=== PATIENT | female | born 1995 | race Caucasian/White ===

== ENCOUNTER 2023-09-01 09:15 | Outpatient (CLI) | payer OTHER, SELFPAY | END 2023-09-01 09:16 | disposition home or self-care (01) | PROVIDERS: PCP Nurse Practitioner Family; Visit Provider Nurse Practitioner Family | DX: R74.01 Elevation of levels of liver transaminase levels (principal); R10.84 Generalized abdominal pain | CPT/HCPCS: 80053; 82150; 83690 ==

== ENCOUNTER 2023-10-02 18:51 | Emergency (ER) | payer OTHER, SELFPAY ==
[2023-10-02 19:13] VITALS: BP 102/78; PULSE 84; RESP 18; TEMP 36.8; O2SAT 99
--- NOTE | 2023-10-02 19:39 | ED_ITS ---
HPI - Headache General Chief Complaint: Headache/Migraine Stated Complaint: Chronic migraines-meds havent helped Time Seen by Provider: 10/02/23 18:58 History of Present Illness HPI Narrative: This 28-year-old female comes in with symptoms of migraine headache that began this morning. She states that she gets migraine headaches on occasion and typically can take Imitrex and laid down for a short time in often gets very good results. Today she attempted this same treatment plan but did not get any resolution of her headache. She reports nausea but no vomiting. She does have sensitivity to light. This is a typical migraine headache for her except that it is persistent. She does not have any neurologic deficits. Related Data Home Medications ?Medication ?Instructions ?Recorded ?Confirmed sumatriptan succinate 100 mg See Rx Instructions PO .COMPLEX 10/02/23 10/02/23 tablet (Imitrex) Allergies Allergy/AdvReac Type Severity Reaction Status Date / Time No Known Drug Allergies Allergy Verified 09/01/23 08:33 Review of Systems Status of ROS: Reports: 10 or more systems reviewed and unremarkable except as noted in History and below Narrative: Constitutional: No fevers, no weight gain or loss. Eyes: No discharge. No vision changes. HENT: No congestion, no sore throat, no ear pain. Cardiovascular: No chest pain, no palpitations. Respiratory: No shortness of breath, no wheezes, no cough. Gastrointestinal: No abdominal pain, no vomiting, no diarrhea. Genitourinary: No dysuria, no hematuria. Musculoskeletal: Normal range of motion. Skin: No rashes, no pruritis. Neurological: No dizziness, weakness, sensory change, speech change. Endo/Heme/Allergies: No bruising or bleeding. No polydipsia. Pysch: no suicidality, no anxiety, no insomnia. All other systems reviewed and are negative. [facility] Medical History (Updated 10/02/23 @ 19:41 by Jj Vidales MD) Right acute otitis media ?H66.91 - Otitis media, unspecified, right ear (ICD-10) Social History Smoking Status: Never smoker Do you use any of these nicotine containing products: None How often do you have a drink containing alcohol: never How often do you have six or more drinks on one occasion: Never AUDIT-C Alcohol total score: 0 Non-prescribed substance use: denies use Exam Narrative: Exam Narrative: Constitutional: Well-developed, well-nourished, no acute distress. HEENT: Normocephalic, atraumatic. Neck: Normal range of motion. Nontender. Supple. Heart: Regular. No murmurs. Normal rate. Intact distal pulses. Lungs: Clear to auscultation. No chest discomfort. No wheezes, rhonchi, or rales. Abdomen: Normal bowel sounds. Nontender. No rebound tenderness. Genitalia: Deferred. Back: No midline tenderness. Normal range of motion. Extremities: Normal range of motion. No injury. Skin: Intact. No rash. Warm. No erythema or pallor. Neurologic: No altered sensation. No weakness. Alert and oriented. Psychiatric: No suicidality. No anxiety or depression. No insomnia. Nursing notes and vitals signs are reviewed. Const: Vital Signs, click to edit/add: Vital Signs - 24 hr 10/02/23 19:13 10/02/23 20:31 10/02/23 21:00 Temperature 98.2 F Pulse Rate 68 78 Pulse Rate [Left P ulse Oximeter] 84 Respiratory Rate 18 18 Blood Pressure 129/67 Blood Pressure [Ri ght Upper Arm] 102/78 Pulse Oximetry 99 99 97 Oxygen Delivery Me thod Room Air Room Air Course Vital Signs Vital signs: Initial Vital Signs Temperature 98.2 F 10/02/23 19:13 Temperature Source Temporal Artery Scan 10/02/23 19:13 Pulse Rate 84 10/02/23 19:13 Pulse Rhythm Regular 10/02/23 19:13 Respiratory Rate 18 10/02/23 19:13 Blood Pressure 102/78 10/02/23 19:13 Blood Pressure Mean 86 10/02/23 19:13 Blood Pressure Position Sitting 10/02/23 19:13 Pulse Oximetry 99 10/02/23 19:13 Oxygen Delivery Method Room Air 10/02/23 19:13 Vital Signs Temperature 98.2 F 10/02/23 19:13 Pulse Rate 84 10/02/23 19:13 Respiratory Rate 18 10/02/23 19:13 Blood Pressure 102/78 10/02/23 19:13 Pulse Oximetry 99 10/02/23 19:13 Oxygen Delivery Method Room Air 10/02/23 19:13 Temperature 98.2 F 10/02/23 19:13 Pulse Rate 78 10/02/23 21:00 Respiratory Rate 18 10/02/23 21:00 Blood Pressure 129/67 10/02/23 21:00 Pulse Oximetry 97 10/02/23 21:00 Oxygen Delivery Method Room Air 10/02/23 21:00 Medications Administered Medications: Discontinued Medications Generic Name Dose Route Start Last Admin Trade Name Nona PRN Reason Stop Dose Admin Diphenhydramine HCl 50 mg 10/02/23 19:38 10/02/23 20:16 Diphenhydramine 50 Mg/Ml Inj IVP 10/02/23 19:39 50 mg ONCE ONE Administration Ketamine HCl 20 mg/ Sodium 100.2 mls @ 300.6 mls/hr 10/02/23 20:54 10/02/23 21:10 Chloride IVPB 10/02/23 20:55 300.6 mls/hr ONCE ONE Administration Ketorolac Tromethamine 30 mg 10/02/23 19:38 10/02/23 20:14 Ketorolac 30 Mg/Ml Inj IVP 10/02/23 19:39 30 mg ONCE ONE Administration Ondansetron HCl 4 mg 10/02/23 19:38 10/02/23 20:18 Ondansetron 2 Mg/Ml Inj IVP 10/02/23 19:39 4 mg ONCE ONE Administration MDM - Headache MDM Narrative Medical decision making narrative: This 28-year-old female has a history of migraine headaches and comes in with similar symptoms which are persistent despite using her regular treatment medicines she uses at home including Imitrex. She does not have any neurologic deficit. She does not report any pain down her back and arrives with normal vital signs. She does not have a fever. An IV was established where the patient received IV doses of Toradol 30 mg, Benadryl 50 mg, and Zofran 4 mg. The patient states that this did not help her headache very much. She then received ketamine 20 mg intravenously. This provided some minimal relief also. She was then given an IV dose of methylprednisolone 125 mg. She is okay to be discharged home and will continue her regular plans from there. She is able to get rest and feels that she be able to sleep tonight and hopefully improve thereafter. Discharge Plan Discharge Clinical Impression: Migraine Patient Disposition: Home w/ Parent or Adult Condition: Stable Additional Instructions: Use medicines as prescribed for ongoing management. Follow up with MD return if worsening. Prescriptions: No Action sumatriptan succinate [Imitrex] 100 mg tablet See Rx Instructions .ROUTE .COMPLEX Rx Instructions: take 1 tab at onset of headache; if no relief, may repeat 1 tab after at least 2 hrs; max = 2 tabs/24 hrs Follow Up/Referrals: Provider,Not a Local [Primary Care Provider] - Stand Alone Forms: [facility] Info Instructions
[2023-10-02] MEDS: KETOROLAC 30 MG/ML inj IVP (20:14)
[2023-10-02] MEDS: diphenhydrAMINE 50 MG/ML inj IVP (20:16)
[2023-10-02] MEDS: ONDANSETRON 2 MG/ML inj 4 MG IVP (20:18)
[2023-10-02 20:31] VITALS: PULSE 68; O2SAT 99
[2023-10-02 21:00] VITALS: BP 129/67; PULSE 78; RESP 18; O2SAT 97
[2023-10-02] MEDS: KETAMINE HCL 20 MG in 0.9 % SODIUM CHLORIDE 100 ml 100 ML 300.6 MG IVPB (21:10)
[2023-10-02 21:32] VITALS: BP 123/78; PULSE 69; RESP 16; O2SAT 97
[2023-10-02 22:02] VITALS: BP 123/78; PULSE 72; RESP 16; O2SAT 97
[2023-10-02] MEDS: METHYLPREDNISOLONE SOD SUCC 62.5 MG/ML (125) 125 MG IVP (22:02)
== END 2023-10-02 22:36 | disposition home or self-care (01) ==
PROVIDERS: Emergency Provider Emergency Medicine Emergency Medical Services
DX: G43.909 Migraine, unspecified, not intractable, without status migrainosus (principal)
CPT/HCPCS: 96365; 96375; 99283; 99284; J1200; J1885; J2405; J2919; J3490